=== PATIENT | female | born 1970 | race African-American/Black ===

== ENCOUNTER 2021-09-27 23:41 | Inpatient (IN) ==
[2021-09-27] MEDS ORDERED: methylPREDNISolone SOD SUC 125 MG/2 ML VIAL IV STA (23:50)
[2021-09-27] MEDS ORDERED: diphenhydrAMINE 50 MG/1 ML VIAL IV STA (23:51)
[2021-09-27] MEDS ORDERED: FAMOTIDINE 20 MG/2 ML VIAL IV STA (23:51)
[2021-09-27] MEDS ORDERED: EPINEPHrine 1 MG/ML VIAL SUBCUT STA (23:57)
[2021-09-28] MEDS ORDERED: ALBUTEROL 2.5 MG/3 ML NEB RESP TX PRN (03:00)
[2021-09-28] MEDS ORDERED: diphenhydrAMINE CAP 25 MG CAPSULE PO PRN (03:02)
[2021-09-28] MEDS ORDERED: ONDANSETRON 4 MG/2 ML VIAL IV PRN (03:02)
[2021-09-28] MEDS ORDERED: MORPHINE 2 MG/1 ML SYRINGE IV PRN (03:02)
[2021-09-28] MEDS: SODIUM CHLORIDE 0.9% 1,000 ML IV SCH ×2 (03:30→16:03)
[2021-09-28 05:12] LABS: Basophils % 0.2 % (0.0-0.8); Eosinophils % 0.1 % (0.00-10.9); Hematocrit 41.6 VOL% (35.7-47.0); Hemoglobin 13.5 GM/DL (12.0-16.0); Immature Granulocytes % 0.5 %; Immature Granulocytes Absolute 0.06 #; Lymphocytes # 0.8 10*3/uL (1.4-4.0); Lymphocytes % 6.7 % (21.3-54.2); Mean Corpuscular HGB Conc 32.5 GM/DL (32-36); Mean Corpuscular Volume 89.3 FL (87-102); Mean Platelet Volume 10.3 FL (9.6-12.0); Monocytes # 0.3 10*3/uL (0.11-0.8); Monocytes % 2.5 % (1.7-12.7); Platelet Count 232 T/CUMM (130-400); Red Blood Count 4.66 MC/CUMM (3.8-5.5); Red Cell Distribution Width 13.8 % (9.3-17.3); White Blood Count 12.3 T/CUMM (4-12)
[2021-09-28 05:36] LABS: Calcium 9.1 MG/DL (8.5-10.1); Potassium 4.8 MMOL/L (3.5-5.1)
[2021-09-28] MEDS: diphenhydrAMINE 50 MG/1 ML VIAL IV SCH ×3 (05:49→18:27)
[2021-09-28] MEDS: ALBUTEROL 2.5 MG/3 ML NEB RESP TX SCH ×3 (08:11→18:53)
[2021-09-28] MEDS: methylPREDNISolone SOD SUC 40 MG/1 ML VIAL IV SCH ×2 (08:14→16:28)
[2021-09-28] MEDS: FAMOTIDINE 20 MG TABLET PO SCH ×2 (09:45→21:10)
[2021-09-29] MEDS: methylPREDNISolone SOD SUC 40 MG/1 ML VIAL IV SCH ×2 (00:33→07:45)
[2021-09-29] MEDS: diphenhydrAMINE 50 MG/1 ML VIAL IV SCH ×2 (00:33→06:36)
[2021-09-29] MEDS: SODIUM CHLORIDE 0.9% 1,000 ML IV SCH ×2 (00:38→10:29)
[2021-09-29] MEDS: ALBUTEROL 2.5 MG/3 ML NEB RESP TX SCH ×2 (00:50→07:10)
[2021-09-29 07:59] LABS: Basophils % 0.1 % (0.0-0.8); Hematocrit 33.5 VOL% (35.7-47.0); Immature Granulocytes % 0.6 %; Immature Granulocytes Absolute 0.07 #; Lymphocytes # 1.2 10*3/uL (1.4-4.0); Lymphocytes % 9.3 % (21.3-54.2); Mean Corpuscular HGB Conc 32.8 GM/DL (32-36); Mean Corpuscular Volume 89.6 FL (87-102); Mean Platelet Volume 10.7 FL (9.6-12.0); Monocytes # 0.6 10*3/uL (0.11-0.8); Monocytes % 4.8 % (1.7-12.7); Neutrophils % 85.2 % (38.7-73.9); Platelet Count 204 T/CUMM (130-400); Red Blood Count 3.74 MC/CUMM (3.8-5.5); Red Cell Distribution Width 14.1 % (9.3-17.3); White Blood Count 12.4 T/CUMM (4-12)
[2021-09-29 08:19] LABS: Calcium 8.5 MG/DL (8.5-10.1); Osmolality,Calculated 286.1 MOS/KG (273-304); Potassium 4.4 MMOL/L (3.5-5.1)
[2021-09-29] MEDS: FAMOTIDINE 20 MG TABLET PO SCH (10:28)
[2021-09-29 12:18] VITALS: BP 120/70
== END 2021-09-29 12:25 | disposition home or self-care (01) | DRG 916 ==
LOC: N.ED 23:41 → N.EDINP 09-28 03:00 → SUATTDRO 09-28 03:00 → N.EDINP 09-28 15:03 → N.TELES 09-28 16:00
PROVIDERS: ADMIT Internal Medicine; ATTEND Family Medicine